=== PATIENT | female | born 1975 | race Caucasian/White ===

== ENCOUNTER 2017-10-24 14:18 | Emergency (ER) | payer SELFPAY ==
[~2017-10-24] VITALS: Ht 170.2 cm; Wt 59.0 kg
[2017-10-24] MEDS ORDERED: NKM (14:26)
[2017-10-24 14:30] VITALS: BP 115/72
[2017-10-24] MEDS ORDERED: Ketorolac 30mg Inj IM ONE (14:45)
[2017-10-24] MEDS ORDERED: Methocarbamol 750mg tab ORAL ONE (15:00)
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
[2017-10-24] MEDS ORDERED: ROBAXIN-750750 MG PO (15:06)
[2017-10-24] MEDS ORDERED: IBUPROFEN600 MG ORAL (15:06)
[2017-10-24 15:55] VITALS: BP 115/72
--- NOTE | 2017-10-25 10:15 | Diagnostic Imaging Report ---
Indication: Reason For Exam: PAIN Technique: XRAY Chest 1v Comparison: None. Findings: The cardiomediastinal silhouette is normal. The lungs are clear. There is no evidence of pleural fluid. There is slight levoscoliosis. Impression: Slight levoscoliosis. Otherwise negative chest.
== END 2017-10-24 15:55 | disposition home or self-care (01) ==
LOC: EMR 14:50
DX: S16.1XXA Strain of muscle, fascia and tendon at neck level, initial encounter (principal); V43.62XA Car passenger injured in collision with other type car in traffic accident, initial encounter; Y92.410 Unspecified street and highway as the place of occurrence of the external cause; R07.9 Chest pain, unspecified
CPT/HCPCS: 71010; 96372; 99284; J1885